=== PATIENT | female | born 1975 | race Caucasian/White ===

== ENCOUNTER 2017-06-30 20:46 | Emergency (ER) | payer MEDICAID ==
[~2017-06-30] VITALS: Ht 160 cm; Wt 95.3 kg
[~2017-06-30 20:46] MED LIST: ACETAMINOPHEN-1 EAC1 PO; ALEVE220 MG PO; ATIVAN1 MG PO; CETIRIZINE HCL5 MG PO; CYMBALTA30 MG PO; EFFEXOR XR75 MG PO; HYDROCODONE-AP1 EAC6 PO; IBUPROFEN 800800 M1 PO; IBUPROFEN 800800 MG PO; MACROBID 100 M100 M1 PO; MUCINEX TA600 MG/TA2 PO; NAPROSYN500 MG PO; NICOTINE TRANSD21 M1 TRANSDERM; ONDANSETRON HCL4 M2 PO; OXCARBAZEPINE300 MG PO; PENICILLIN V P500 MG PO; PERCOCET PO; ROBAXIN500 MG PO; TENORMIN50 MG PO; TRILEPTAL300 MG PO; TYLENOL325 MG PO; VISTARIL 25 MG25 M1 PO
[2017-06-30] MEDS ORDERED: TRAZODONE HCL100 MG PO (21:05)
[2017-06-30] MEDS ORDERED: NEURONTIN 300300 M1 PO (21:05)
[2017-06-30 21:26] LABS: ABSOLUTE BASOPHILS 0.1 thou/uL (0.0-0.2); ABSOLUTE EOSINOPHILS 0.1 thou/uL (0.0-0.7); ABSOLUTE LYMPHOCYTES 1.5 thou/uL (0.8-5.3); ABSOLUTE MONOCYTES 0.6 thou/uL (0.0-1.2); ABSOLUTE NEUTROPHILS 3.7 thou/uL (1.6-8.1); BASOPHILS 1.8 %; EOSINOPHILS 1.5 %; HEMATOCRIT 43.5 % (37.0-47.0); HEMOGLOBIN 14.6 gm/dL (12.0-15.0); LYMPHOCYTES 25.8 %; MCH 31.1 pg (26.0-34.0); MCHC 33.5 g/dL (28.0-37.0); MCV 92.8 fL (80.0-100.0); MONOCYTES 9.5 %; MPV 7.5 fl. (7.2-11.1); NUCLEATED RBCS 0 /100WBC; PLATELET COUNT* 220 thou/uL (150-400); POLYS 61.4 %; RBC 4.69 mil/uL (4.20-5.00); RDW-CV 13.8 % (10.5-14.5)
[2017-06-30 21:30] LABS: CALCIUM 9.1 mg/dL (8.5-10.1); CREATININE 0.8 mg/dL (0.6-1.3); POTASSIUM 4.2 mmol/L (3.5-5.1)
[2017-06-30 21:34] LABS: ALBUMIN 3.9 g/dL (3.4-5.0); TOTAL BILIRUBIN 0.2 mg/dL (<0.1-1.0); TOTAL PROTEIN 7.6 g/dL (6.4-8.2)
[2017-07-01] MEDS ORDERED: HYDROCODON-ACE1 EAC8 PO (00:13)
[2017-07-01 00:29] VITALS: BP 134/64
== END 2017-07-01 00:31 | disposition home or self-care (01) ==
LOC: M.ERS 20:46
PROVIDERS: Emergency Medicine
DX: N94.6 Dysmenorrhea, unspecified (principal); I10 Essential (primary) hypertension; F31.9 Bipolar disorder, unspecified; F17.210 Nicotine dependence, cigarettes, uncomplicated; Z90.49 Acquired absence of other specified parts of digestive tract; Z98.890 Other specified postprocedural states; Z88.8 Allergy status to other drugs, medicaments and biological substances

== ENCOUNTER 2018-04-21 18:36 | Emergency (ER) | payer MEDICAID ==
[~2018-04-21] VITALS: Ht 160 cm; Wt 104.3 kg
[~2018-04-21 18:36] MED LIST changes: +HYDROCODON-ACE1 EAC8 PO; +NEURONTIN 300300 M1 PO; +TRAZODONE HCL100 MG PO
[2018-04-21 18:42] VITALS: BP 183/81
[2018-04-21] MEDS ORDERED: TRILEPTAL300 MG PO (18:51)
== END 2018-04-21 18:58 | disposition home or self-care (01) ==
LOC: M.ERS 18:36
DX: F41.9 Anxiety disorder, unspecified (principal); Z76.0 Encounter for issue of repeat prescription; I10 Essential (primary) hypertension; F31.9 Bipolar disorder, unspecified; F17.210 Nicotine dependence, cigarettes, uncomplicated; Z88.8 Allergy status to other drugs, medicaments and biological substances; Z90.49 Acquired absence of other specified parts of digestive tract; Z98.890 Other specified postprocedural states

== ENCOUNTER 2018-07-23 09:39 | Emergency (ER) | payer MEDICAID ==
[~2018-07-23] VITALS: Ht 160 cm; Wt 106.6 kg
[2018-07-23] MEDS ORDERED: ALBUTEROL2.5 MG/31 INH (09:49)
[2018-07-23] MEDS ORDERED: VENTOLIN HFA INH8 GM INH (09:49)
[2018-07-23 10:11] LABS: INFLUENZA A ANTIGEN None Detected (None Detect); INFLUENZA B ANTIGEN None Detected (None Detect)
[2018-07-23 10:14] LABS: ABSOLUTE BASOPHILS 0.1 thou/uL (0.0-0.2); ABSOLUTE EOSINOPHILS 0.1 thou/uL (0.0-0.7); ABSOLUTE LYMPHOCYTES 1.7 thou/uL (0.8-5.3); ABSOLUTE MONOCYTES 0.4 thou/uL (0.0-1.2); ABSOLUTE NEUTROPHILS 5.4 thou/uL (1.6-8.1); BASOPHILS 0.8 %; HEMATOCRIT 43.2 % (37.0-47.0); HEMOGLOBIN 14.6 gm/dL (12.0-15.0); LYMPHOCYTES 22.8 %; MCH 30.7 pg (26.0-34.0); MCHC 33.9 g/dL (28.0-37.0); MCV 90.8 fL (80.0-100.0); MONOCYTES 5.1 %; MPV 7.3 fl. (7.2-11.1); NUCLEATED RBCS 0 /100WBC; PLATELET COUNT* 249 thou/uL (150-400); POLYS 70.3 %; RBC 4.76 mil/uL (4.20-5.00); RDW-CV 14.1 % (10.5-14.5); WBC 7.7 thou/uL (4.0-11.0)
[2018-07-23 10:19] LABS: CALCIUM 8.5 mg/dL (8.5-10.1); CREATININE 0.8 mg/dL (0.6-1.3)
[2018-07-23 10:24] LABS: ALBUMIN 3.4 g/dL (3.4-5.0); TOTAL BILIRUBIN 0.2 mg/dL (<0.1-1.0); TOTAL PROTEIN 7.3 g/dL (6.4-8.2)
[2018-07-23] MEDS ORDERED: TUSSIONEX PENN115 ML PO (10:24)
[2018-07-23] MEDS ORDERED: AZITHROMYCIN 2250 MG PO (10:24)
[2018-07-23] MEDS ORDERED: PREDNISONE50 MG PO (10:24)
[2018-07-23] MEDS ORDERED: IPRAT-ALBUT 0.5-3 ML PO (10:24)
[2018-07-23 10:44] VITALS: BP 136/63
--- NOTE | 2018-07-24 13:40 | EKG ---
[place] [address] ELECTROCARDIOGRAM REPORT Name: HIRA SANDHU Room: [facility]#: [id number] Admission: 07/23/18 Attend Phys: Discharge: 07/23/18 Date of : 71 Report #: [id number] THIS REPORT FOR: //name// [facility] ED Test Date: 2018-07-23 Test Time: 09:49:06 Pat Name: HIRA SANDHU Department: Room: Gender: F Field Support Engineer: LILIAM : 1975 Requested By: Beverley Perea Order Number: [id number] Chente MD: Ramses Mckeon Measurements Intervals [place] Rate: 111 P: 45 MN: 96 QRS: 17 QRSD: 91 T: 10 QT: 332 QTc: 451 Interpretive Statements Sinus tachycardia Compared to ECG 12/27/2015 11:58:14 Sinus rhythm no longer present Left ventricular hypertrophy no longer present Electronically Signed On 07-24-2018 13:40:45 CDT by Ramses Mckeon [email or web address] <ELECTRONICALLY SIGNED> By: Ramses Mckeon MD, [facility] 07/24/18 1340 [id number] 8 Ramses Mckeon MD, FACC /EPI
== END 2018-07-23 10:45 | disposition home or self-care (01) ==
LOC: M.ERS 09:39
PROVIDERS: Personal Emergency Response Attendant
DX: J40 Bronchitis, not specified as acute or chronic (principal); J98.01 Acute bronchospasm; I10 Essential (primary) hypertension; F31.9 Bipolar disorder, unspecified; Z90.49 Acquired absence of other specified parts of digestive tract; Z98.890 Other specified postprocedural states; F17.210 Nicotine dependence, cigarettes, uncomplicated; Z88.8 Allergy status to other drugs, medicaments and biological substances

== ENCOUNTER 2018-08-29 18:37 | Emergency (ER) | payer MEDICAID ==
[~2018-08-29] VITALS: Ht 160 cm; Wt 106.1 kg
[~2018-08-29 18:37] MED LIST changes: +ALBUTEROL2.5 MG/31 INH; +AZITHROMYCIN 2250 MG PO; +IPRAT-ALBUT 0.5-3 ML PO; +PREDNISONE50 MG PO; +TUSSIONEX PENN115 ML PO; +VENTOLIN HFA INH8 GM INH
[2018-08-29] MEDS ORDERED: IPRAT-ALBUT 0.5-3 ML INH (20:47)
[2018-08-29] MEDS ORDERED: PREDNISONE 20 M20 MG PO (20:47)
[2018-08-29] MEDS ORDERED: ZPAK PO (20:47)
[2018-08-29] MEDS ORDERED: PROMETH-CODEIN 65 ML PO (20:48)
[2018-08-29 21:01] VITALS: BP 139/65
== END 2018-08-29 21:02 | disposition home or self-care (01) ==
LOC: M.ERS 18:37
DX: J20.9 Acute bronchitis, unspecified (principal); I10 Essential (primary) hypertension; F31.9 Bipolar disorder, unspecified; F17.210 Nicotine dependence, cigarettes, uncomplicated; Z98.890 Other specified postprocedural states; Z90.49 Acquired absence of other specified parts of digestive tract; Z88.8 Allergy status to other drugs, medicaments and biological substances